=== PATIENT | female | born 1985 | race Two or more races ===

== ENCOUNTER 2024-06-23 18:19 | Emergency (ER) | payer SELFPAY ==
[~2024-06-23] VITALS: Ht 162.6 cm; Wt 78.0 kg
[2024-06-23 18:22] VITALS: O2SAT 98
[2024-06-23] MEDS: TETRACAINE/BENZOCAINE/BUTAMBEN 20 GM SPRAY MM NR (19:00)
[2024-06-23] MEDS: SODIUM CHLORIDE 0.9% 1,000 ML IV ONE (19:41)
[2024-06-23] MEDS: HYDRALAZINE 20MG/ML VIAL IV ONE (19:42)
[2024-06-23 20:10] LABS: EOSINOPHILS % 2.7 % (0.0-5.0); HEMATOCRIT. 40.7 % (36.0-48.0); HEMOGLOBIN. 13.3 g/dL (12.0-16.0); LYMPHOCYTES % 29.4 % (20.0-50.0); MEAN CORPUSCULAR HEMOGLOBIN 26.4 pg (28.0-32.0); MEAN CORPUSCULAR HGB CONC 32.7 g/dL (31.0-37.0); MEAN CORPUSCULAR VOLUME 80.8 fL (81.0-99.0); MEAN PLATELET VOLUME 9.1 fl (7.4-10.4); MONOCYTES % 7.2 % (2.0-8.0); NEUTROPHILS % 59.7 % (40.0-76.0); PLATELET 232 x1000/uL (130-400); RED BLOOD CELL COUNT 5.03 mill/uL (4.2-5.4); RED CELL DISTRIBUTION WIDTH 15.7 % (11.6-14.6); WHITE BLOOD COUNT 7.8 x1000/uL (4.5-11.0)
[2024-06-23 20:11] LABS: CHLORIDE 102 mEq/L (98-107); POTASSIUM 3.6 mEq/L (3.5-5.1); SODIUM 136 mEq/L (136-145)
[2024-06-23 20:12] LABS: CARBON DIOXIDE 27 mEq/L (21-32)
[2024-06-23 20:13] LABS: CALCIUM 9.7 mg/dL (8.7-10.4)
[2024-06-23 20:17] LABS: CREATININE 0.8 mg/dL (0.6-1.0); GLUCOSE 129 mg/dL (70-105); INR 0.9; PROTHROMBIN TIME 10.3 sec (9.6-11.0)
[2024-06-23 20:18] LABS: TROPONIN I HIGH SENSITIVITY 20 ng/L (3.0-34); UREA NITROGEN BLOOD 13 mg/dL (9-23)
[2024-06-23 20:19] LABS: ALANINE AMINOTRANSFERASE 51 IU/L (10-49); ALBUMIN 4.5 g/dL (3.2-4.8); ASPARTATE AMINOTRANSFERASE 34 IU/L (<34)
[2024-06-23 20:20] LABS: BILIRUBIN TOTAL 0.3 mg/dL (0.1-1.0); PROTEIN TOTAL 7.7 g/dL (6.0-8.3)
[2024-06-23 20:28] LABS: HCG SCREEN NEGATIVE
[2024-06-23] MEDS ORDERED: CLONIDINE 0.2MG TABLET PO ONE (20:30)
[2024-06-23 20:35] LABS: BILIRUBIN DIRECT < 0.1 mg/dL (<=3.0)
[2024-06-23] MEDS: CLONIDINE 0.1MG TABLET PO NR (20:49)
[2024-06-23 21:50] VITALS: BP 153/98; PULSE 95; RESP 18; TEMP 36.89184; O2SAT 98
== END 2024-06-23 22:17 | disposition home or self-care (01) ==
LOC: ER 18:19
DX: E11.9 Type 2 diabetes mellitus without complications (principal); R04.0 Epistaxis; I16.0 Hypertensive urgency
CPT/HCPCS: 80076; 80048; 84703; 85025; 85610; 86850; 86900; 86901; 84484; 36415; 71045; 93005; 30901; 96361; 96374; 99285; J0360; J7030; Z7610 ×2